=== PATIENT | male | born 1995 | race Hispanic/Latino ===

== ENCOUNTER 2024-05-30 12:08 | Emergency (ER) | payer OTHER ==
[~2024-05-30] VITALS: Ht 188 cm; Wt 77.1 kg
[2024-05-30 13:05] VITALS: BP 132/65; PULSE 78; RESP 20; O2SAT 97
[2024-05-30] MEDS: NEOMY SULF/BACITRA/POLYMYXIN B 1 EACH PACKET TP ONE (13:13)
[2024-05-30] MEDS: LIDOCAINE HCL 1% 20 ML VIAL INJ SCH (13:13)
[2024-05-30] MEDS: ACETAMINOPHEN 500 MG TABLET PO ONE (13:14)
== END 2024-05-30 13:31 | disposition home or self-care (01) ==
LOC: EDH 12:08
DX: S61.411A Laceration without foreign body of right hand, initial encounter (principal); W25.XXXA Contact with sharp glass, initial encounter; Y93.89 Activity, other specified; Y92.89 Other specified places as the place of occurrence of the external cause; Y99.8 Other external cause status
CPT/HCPCS: 12002